=== PATIENT | female | born 1945 | race Caucasian/White ===

== ENCOUNTER 2018-11-03 08:49 | Day surgery (SDC) | payer MEDICARE ==
[~2018-11-03] VITALS: Ht 154.9 cm; Wt 74.8 kg
[~2018-11-03 08:49] MED LIST: ACETAMINOPHEN 325 MG TAB PO PRN; B-122500 PO; BALANCED SALT IRRIGATION SOLUTION 500ML BAG (FOR OR EYE MACHINE) As Ordered ONE; CEFUROXIME 1MG/0.1ML INTRACAMERAL INJ As Ordered ONE; CYCLOPENTOLATE 2% OPHTH SOLN 2ML BTL OD ONE; EZET10TA21 PO; FERR325T82 PO; HEALON DUET PRO(HEALON 10MG/ML 0.55ML & HEALON ENDOCOAT 30MG/ML 0.85ML) As Ordered ONE; HYDR12.55 PO; IRBE300T10 PO; LEVO50TA5 PO; LEXA1TAB PO; LIDOCAINE 1% SDV 5 ML VIAL As Ordered ONE; LIDOCAINE 3.5 % 1ML OPHTH TOPICAL GEL OU ONE; MIDAZOLAM INJ 2 MG/2 ML VIAL (J2250) As Ordered ONE; NEUR300C PO; NEXI40CA PO; OFLOXACIN 0.3 % (OCUFLOX) OPTH SOL 5ML OD ONE; PHENYLEPHRINE 2.5% OPHTH SOL 2ML OD ONE; POVIDONE-IODINE 5% OPHTH PREP SOL 30ML As Ordered ONE; PROPARACAINE 0.5% OPHTH SOL 15ML OD PRN; TROPICAMIDE 1% OPHTH SOLN 2ML OD ONE; fentaNYL 100 MCG/2 ML INJECTION (J3010) As Ordered ONE
[2018-11-03] MEDS: PHENYLEPHRINE HCL 10 % OPHTH. SOL 5ML OD PRN ×2 (11:11→11:17)
--- NOTE | 2018-11-03 11:25 | RO ---
DATE OF OPERATION: 11/03/2018 PREOPERATIVE DIAGNOSIS: Age-related nuclear cataract right eye. POSTOPERATIVE DIAGNOSIS: Age-related nuclear cataract right eye. PROCEDURE PERFORMED: Femtosecond cataract extraction with posterior chamber intraocular lens implantation and Optiwave Refractive Analysis (ORA) right eye. Lens used was an AU00T0 23.5 diopter. SURGEON: Alyssia Vogel MD SHINGLE SAWYER: ANESTHESIA: Topical with sedation. DESCRIPTION OF PROCEDURE: Patient was prepped and draped in usual fashion. A lid speculum was placed between the lids. The eye was fixated. A stab incision was made into the anterior chamber. 1% nonpreserved lidocaine was instilled. Then viscoelastic was instilled. The main incision was then opened with the incision director of assessing, and the anterior capsulorrhexis was removed, was performed by the laser. The lens was then rocked to remove any gas from behind it, and then it was freely movable in the capsular bag. The phacoemulsification unit was used to groove the nucleus in two meridians. The nucleus was cracked into four quadrants. Each quadrant was removed with the phacoemulsification unit. Any remaining cortex was removed with the irrigation and aspiration (I and A) unit. The capsular bag was refilled with viscoelastic, and then the intraocular pressure measured and found to be adequate for ORA. The ORA was lowered into place, focused on the apex of the cornea, and aligned to the patient. Readings were made, and an appropriate intraocular lens was chosen from the data generated by the ORA. The lens was then injected into the eye with its seam rubbing machine operator and into the capsular bag. It was in great position. Any remaining viscoelastic was removed with the I and A unit. The wound was then hydrated, and balanced salt solution (BSS) and cefuroxime were instilled. Patient tolerated this procedure well and went to recovery room in stable condition.
[2018-11-03 13:14] VITALS: BP 161/84
[2018-11-03] MEDS ORDERED: AcetaZOLAMIDE 500 MG ER CAP PO ONE (13:15)
[2018-11-03] MEDS ORDERED: TRIMETHOBENZAMIDE 300 MG CAP PO PRN (13:15)
[2018-11-03] MEDS ORDERED: KETOROLAC 0.5% OPHTH SOLN OD ONE (13:15)
== END 2018-11-03 13:25 | disposition home or self-care (01) ==
LOC: M SDC 08:49
PROVIDERS: ATTEND Ophthalmology
DX: H25.11 Age-related nuclear cataract, right eye (principal); I10 Essential (primary) hypertension; E78.5 Hyperlipidemia, unspecified; K21.9 Gastro-esophageal reflux disease without esophagitis; E03.9 Hypothyroidism, unspecified; D64.9 Anemia, unspecified; L40.9 Psoriasis, unspecified; Z79.899 Other long term (current) drug therapy
CPT/HCPCS: 66984; 92015; J2250; J3010; V2632

== ENCOUNTER 2018-11-10 08:40 | Day surgery (SDC) | payer MEDICARE ==
[~2018-11-10] VITALS: Ht 154.9 cm; Wt 75.2 kg
[~2018-11-10 08:40] MED LIST changes: -CYCLOPENTOLATE 2% OPHTH SOLN 2ML BTL OD ONE; +CYCLOPENTOLATE 2% OPHTH SOLN 2ML BTL OS ONE; -OFLOXACIN 0.3 % (OCUFLOX) OPTH SOL 5ML OD ONE; +OFLOXACIN 0.3 % (OCUFLOX) OPTH SOL 5ML OS ONE; -PHENYLEPHRINE 2.5% OPHTH SOL 2ML OD ONE; +PHENYLEPHRINE 2.5% OPHTH SOL 2ML OS ONE; +PHENYLEPHRINE HCL 10 % OPHTH. SOL 5ML OS PRN; -PROPARACAINE 0.5% OPHTH SOL 15ML OD PRN; +PROPARACAINE 0.5% OPHTH SOL 15ML OS PRN; -TROPICAMIDE 1% OPHTH SOLN 2ML OD ONE; +TROPICAMIDE 1% OPHTH SOLN 2ML OS ONE
[2018-11-10] MEDS ORDERED: TETRACAINE 0.5% OPHTH SOLN 4ML As Ordered ONE (13:24)
--- NOTE | 2018-11-10 13:50 | RO ---
DATE OF PROCEDURE: PREOPERATIVE DIAGNOSIS: Age-related nuclear cataract, left eye. POSTOPERATIVE DIAGNOSIS: Age-related nuclear cataract, left eye. PROCEDURE PERFORMED: Femtosecond cataract extraction with posterior chamber intraocular lens implantation and Optiwave Refractive Analysis (ORA). Lens used was an AU00T0 23.0 diopter. SURGEON: Alyssia Vogel MD PARKS RECREATION COORDINATOR: ANESTHESIA: Topical with sedation. DESCRIPTION OF PROCEDURE: Patient was prepped and draped in usual fashion. A lid speculum was placed between the lids. The eye was fixated. A stab incision was made into the anterior chamber. 1% nonpreserved lidocaine was instilled. Then viscoelastic was instilled. The main incision was then opened with the incision methods analyst data processing, and the anterior capsulorrhexis was removed, was performed by the laser. The lens was then rocked to remove any gas from behind it, and then it was freely movable in the capsular bag. The phacoemulsification unit was used to groove the nucleus in two meridians. The nucleus was cracked into four quadrants. Each quadrant was removed with the phacoemulsification unit. Any remaining cortex was removed with the irrigation and aspiration (I and A) unit. The capsular bag was refilled with viscoelastic, and then the intraocular pressure measured and found to be adequate for ORA. The ORA was lowered into place, focused on the apex of the cornea, and aligned to the patient. Readings were made, and an appropriate intraocular lens was chosen from the data generated by the ORA. The lens was then injected into the eye with its mental tester and into the capsular bag. It was in great position. Any remaining viscoelastic was removed with the I and A unit. The wound was then hydrated, and balanced salt solution (BSS) and cefuroxime were instilled. Patient tolerated this procedure well and went to recovery room in stable condition.
[2018-11-10] MEDS ORDERED: AcetaZOLAMIDE 500 MG ER CAP PO ONE (14:15)
[2018-11-10] MEDS ORDERED: KETOROLAC 0.5% OPHTH SOLN OS ONE (14:15)
[2018-11-10] MEDS ORDERED: TRIMETHOBENZAMIDE 300 MG CAP PO PRN (14:15)
[2018-11-10 14:25] VITALS: BP 130/77
== END 2018-11-10 14:35 | disposition home or self-care (01) ==
LOC: M SDC 08:40
PROVIDERS: ATTEND Ophthalmology
DX: H25.12 Age-related nuclear cataract, left eye (principal); I10 Essential (primary) hypertension; E78.5 Hyperlipidemia, unspecified; E03.9 Hypothyroidism, unspecified; K21.9 Gastro-esophageal reflux disease without esophagitis; D64.9 Anemia, unspecified; Z79.899 Other long term (current) drug therapy
CPT/HCPCS: 66984; 92015; J2250; J3010; V2632